=== PATIENT | male | born 1975 | race Caucasian/White ===

== ENCOUNTER 2019-12-31 08:45 | Emergency (ER) | payer OTHER, SELFPAY ==
[2019-12-31 08:50] VITALS: BP 144/77; PULSE 91; RESP 20; TEMP 36.8; O2SAT 100
--- NOTE | 2019-12-31 08:59 | ED.GENADULT ---
HPI - General Adult General Chief complaint: Skin/Abscess/Foreign Body Stated complaint: swollen lip Time Seen by Provider: 12/31/19 09:01 Source: patient and RN notes reviewed Mode of arrival: ambulatory Limitations: no limitations History of Present Illness HPI narrative: 44-year-old male presents with complaints of swelling to upper lip for the past 4.5 hours. Hydroxyzine without relief. Lucio says he awaken this morning at approximately 04:00 with top lip swelling which has increased. No known injuries. He was outside last night burning stumps no other outdoor activities or insect bites to his knowledge. Denies new changes in personal hygiene products or laundry detergent. Denies medications such as beverley inhibitors (Lisinopril) or known hereditary angioedema. Says this is his first time hearing of such. No new foods or medications. No other swelling, burning, bleeding, or drainage. Denies fever, chills, headaches, weakness, fatigue, myalgia, other facial swelling, throat swelling, or tongue swelling. Denies chest pain or dyspnea. Tolerating po intake well. The patient reports he have not been diagnosed with COVID-19. The patient reports he is not waiting for the results of a COVID-19 lab test. The patient reports he do not have fever, chills, weakness, or fatigue. The patient reports he do not have a new or worsening cough or shortness of breath. Denies chest pain. The patient reports he do not have any rhinorrhea, congestion, sore throat, nausea, vomiting, abdominal pain, and diarrhea. Denies recent traveling. Denies concerns for COVID-19 or exposures been home with limited outdoor exposure except for essential household needs, work, and return home. At this time, patient is not suspected of having COVID-19. Some parts of this dictation were generated by voice recognition software and may contain typographical and/or grammatical inaccuracies. Related Data Home Medications Medication Instructions Recorded Confirmed hydroxyzine pamoate 25 mg PO QID PRN 12/31/19 12/31/19 Allergies Allergy/AdvReac Type Severity Reaction Status Date / Time No Known Allergies Allergy Unknown Verified 12/31/19 09:38 Review of Systems Review of Systems: Narrative: CONSTITUTIONAL: Denies fever, chills, sweats. EYES: Denies visual changes, redness, discharge. ENT: Denies rhinorrhea, congestion, sore throat, otalgia. Complains of swelling to the upper lip. CARDIOVASCULAR: Denies chest pain, palpitations, edema. RESPIRATORY: Denies dyspnea, wheezing, cough. GASTROINTESTINAL: Denies abdominal pain, nausea, vomiting, diarrhea. GENITOURINARY: Denies dysuria, hematuria, abnormal discharge. SKIN: Denies drainage. MUSCULOSKELETAL: Denies acute back pain, joint pain, or myalgia. NEUROLOGIC: Denies numbness or focal weakness. PSYCHIATRIC: Denies anxiety or depression. All systems reviewed & are unremarkable except as noted in HPI and below. [facility] Past Medical History Medical History (Updated 12/31/19 @ 09:37 by SONIA Patten) Burn Surgical History Surgical History (Updated 12/31/19 @ 09:19 by SONIA Patten) History of skin graft Family History Family History (Updated 12/31/19 @ 09:20 by SONIA Patten) Father Alive and well Mother Alive and well Social History Social History (Updated 12/31/19 @ 09:20 by SONIA Patten) Smoking packs per day: 0.5 Smoking cigarettes per day: 10.0 Years smoked: 20 Smoking pack-years: 10.00 Smoking status: Current every day smoker Second hand tobacco smoke exposure: No Alcohol intake: current Substance use: never Living arrangements: with family Occupation/Education: occupation Gender identity (if verbalized by the patient): Male Comments At time of signature, agree with nurse past medical, surgical, social, and family history. There is no relevant family history pertinent to the presenting complaint. Exam Narrative
[2019-12-31] MEDS: FAMOTIDINE 20 MG TABLET PO (09:26)
[2019-12-31] MEDS: diphenhydrAMINE HCl INJ 50 MG/ML VIAL IM (09:27)
== END 2019-12-31 09:50 | disposition home or self-care (01) ==
PROVIDERS: Emergency Provider Nurse Practitioner Family; PCP Family Medicine
DX: T78.3XXA Angioneurotic edema, initial encounter (principal); F17.210 Nicotine dependence, cigarettes, uncomplicated
CPT/HCPCS: 96372; 99204; A9270; G0463; J1100; J1200